=== PATIENT | male | born 1985 | race Caucasian/White ===

== ENCOUNTER 2018-04-11 13:18 | Emergency (ER) | payer BC ==
[2018-04-11 13:36] VITALS: BP 147/110
--- NOTE | 2018-04-11 13:37 | UC ---
Dental HPI - HPI Summary HPI Summary: 32 year old male here with a chief complaint of right lower dental pain and swelling. Patient's had a problem with this area for several years. In the past she's had antibiotics which helped. This most recent episode started several days ago. Been taking ibuprofen which helps some with the pain but the pain returns. No fevers or chills. - History of Current Complaint Stated Complaint: TOOTH ACHE Time Seen by Provider: 04/11/18 13:25 - Allergies/Home Medications Allergies/Adverse Reactions: Allergies Allergy/AdvReac Type Severity Reaction Status Date / Time No Known Allergies Allergy Verified 04/11/18 13:30 PMH/Surg Hx/FS Hx/Imm Hx Previously Healthy: Yes - ON SUBOXONE - Family History Known Family History: Positive: Non-Contributory Review of Systems All Other Systems Reviewed And Are Negative: Yes Constitutional: Positive: Negative Skin: Positive: Negative Eyes: Positive: Negative ENT: Positive: Dental Pain Respiratory: Positive: Negative Cardiovascular: Positive: Negative Gastrointestinal: Positive: Negative Motor: Positive: Negative Neurovascular: Positive: Negative Musculoskeletal: Positive: Negative Neurological: Positive: Negative Psychological: Positive: Negative Is Patient Immunocompromised?: No Physical Exam Triage Information Reviewed: Yes Appearance: Well-Appearing, No Pain Distress, Well-Nourished Vital Signs Reviewed: Yes Eye Exam: Normal Eyes: Positive: Conjunctiva Clear ENT: Positive: Pharynx normal, Uvula midline. Negative: Muffled voice Dental: Positive: Other: - Right lower molars have extensive decay. There is gingival swelling and some swelling to the cheek. Neck exam: Normal Neck: Positive: Supple Respiratory: Positive: Lungs clear, Normal breath sounds, No respiratory distress Cardiovascular: Positive: RRR Musculoskeletal Exam: Normal Musculoskeletal: Positive: Strength Intact, ROM Intact Neurological Exam: Normal Neurological: Positive: Alert, Muscle Tone Normal Psychological Exam: Normal Psychological: Positive: Normal Response To Family, Age Appropriate Behavior Skin Exam: Normal Dental Complaint Course/Dx - Differential Dx/Diagnosis Provider Diagnoses: DENTAL INFECTION Discharge - Sign-Out/Discharge Documenting (check all that apply): Patient Departure All imaging exams completed and their final reports reviewed: No Studies - Discharge Plan Condition: Stable Disposition: HOME Prescriptions: Penicillin VK 500 MG TAB(NF) [Penicillin VK 500 mg Tab] 500 mg PO QID #40 tab Patient Education Materials: Dental Abscess (ED) Referrals: Mina Becker MD [Primary Care Provider] - Additional Instructions: FOLLOW UP WITH YOUR DENTIST. GET RECHECKED FOR ANY WORSENING OF YOUR CONDITION OR QUESTIONS OR CONCERNS. - Billing Disposition and Condition Condition: STABLE Disposition: Home
== END 2018-04-11 13:40 | disposition home or self-care (01) ==
LOC: UCEAST 13:18
DX: K04.6 Periapical abscess with sinus (principal)
CPT/HCPCS: 99212; G0463

== ENCOUNTER 2019-05-20 11:09 | Emergency (ER) | payer BC ==
--- NOTE | 2019-05-20 11:31 | ED ---
Complex/Multi-Sys Presentation - HPI Summary HPI Summary: 33-year-old male with significant past medical history of heroin abuse (clean for 5 years), alcoholism, hepatitis C and anxiety presents to emergency department today with a chief complaint of feeling anxious. Patient states he has been shaking and feeling anxious for 2 days. he originally believed the symptoms to be due to alcohol withdrawal which he states he has never been in. he endorses 5 years of drinking 4 21oz "twisted tea" today. he states his last drink was this morning. Patient denies recent drug use. Patient is interested in alcohol cessation. Patient denies fever, chest pain, abdominal pain, shortness of breath all, rash. Family history and surgical history noncontributory. - History Of Current Complaint Chief Complaint: EDPsychosocial Time Seen by Provider: 05/20/19 11:15 Hx Obtained From: Patient Onset/Duration: Gradual Onset Timing: Constant Severity Currently: Mild Severity Initially: Mild - Allergies/Home Medications Allergies/Adverse Reactions: Allergies Allergy/AdvReac Type Severity Reaction Status Date / Time No Known Allergies Allergy Verified 05/20/19 11:18 PMH/Surg Hx/FS Hx/Imm Hx Infectious Disease History: No Infectious Disease History: Reports: Hx Hepatitis - hep C Denies: Traveled Outside the [place] in Last 30 Days - Family History Known Family History: Positive: Non-Contributory - Social History Alcohol Use: Daily Alcohol Amount: 3-4 beers a night Substance Use Type: Reports: None Substance Use Comment - Amount & Last Used: recoving heroine 3 yrs Smoking Status (MU): Light Every Day Tobacco Smoker Amount Used/How Often: 1/2 PPD Review of Systems Constitutional: Negative Eyes: Negative ENT: Negative Cardiovascular: Negative Respiratory: Negative Gastrointestinal: Negative Genitourinary: Negative Musculoskeletal: Negative Skin: Negative Neurological: Other - tremor Positive: Anxious All Other Systems Reviewed And Are Negative: Yes Physical Exam - Summary Physical Exam Summary: Patient appeared have a mild tremor in conversation of the upper extremities and lower extremities bilaterally. Tremor is constant. Triage Information Reviewed: Yes Vital Signs On Initial Exam: Initial Vitals Temp Pulse Resp BP Pulse Ox 98.6 F 100 20 141/118 99 05/20/19 11:15 05/20/19 11:15 05/20/19 11:15 05/20/19 11:15 05/20/19 11:15 Vital Signs Reviewed: Yes Appearance: Positive: Well-Appearing, No Pain Distress, Well-Nourished Skin: Positive: Warm, Skin Color Reflects Adequate Perfusion Procedures - Sedation Patient Received Moderate/Deep Sedation with Procedure: No Diagnostics - Vital Signs Vital Signs Temp Pulse Resp BP Pulse Ox 05/20/19 11:15 98.6 F 100 20 141/118 99 - Laboratory Result Diagrams: 05/20/19 11:49 05/20/19 11:43 Lab Statement: Any lab studies that have been ordered have been reviewed, and results considered in the medical decision making process. Complex Multi-Symp Course/Dx Course Of Treatment: Patient was seen and examined vitals are stable and he is afebrile. Blood work returned showing no leukocytosis.AST 123, ALT 58. This is suggestive of alcoholic fatty liver disease. Blood glucose 113. Serum alcohol level is 120. Urinalysis negative for UTI with negative toxicology screening. Patient was showing signs of early mild alcohol withdrawal and was treated with 50 mg of Librium. After medication patients symptoms significantly reduced and he was given a prescription for a Librium taper to follow up as an outpatient for detox. - Diagnoses Differential Diagnoses/HQI/PQRI: Metabolic Abnormality, Other - Alcohol withdrawal, anxiety Provider Diagnoses: Alcohol withdrawal Discharge ED - Sign-Out/Discharge Documenting (check all that apply): Patient Departure - Discharge Plan Condition: Stable Disposition: HOME Prescriptions: chlordiazePOXIDE CAP* [Librium CAP*] 25 mg PO SEE INSTRUCTIONS #14 cap MDD 8 tab chlordiazePOXIDE CAP* [Librium CAP*] 25 mg PO SEE INSTRUCTIONS #14 cap MDD 8 Patient Education Materials: Alcohol Withdrawal (ED), Anxiety (ED) Referrals: Mina Becker MD [Primary Care Provider] - 3 Days Additional Instructions: You were seen in the emergency department today due to alcohol withdrawal. This occurs when your blood alcohol levels go below what they normally are and cause tremors, hallucinations, and even seizures when severe. Alcohol withdrawal can be life-threatening, if these symptoms continue please return to emergency department immediately. Please follow-up with your primary care physician in 3 days for further evaluation and management of your symptoms. If you develop any new or worsening symptoms please return to the emergency department immediately. chlordiazepoxide Day 1 - 50 mg every 6 to 12 hours (Your first dose was given to you in the emergency room (50mg) Day 2 - 25 mg every 6 hours Day 3 - 25 mg twice a day Day 4 - 25 mg at night - Billing Disposition and Condition Condition: STABLE Disposition: Home
[2019-05-20 12:00] LABS: ABS Lymphocytes 0.9 10^3/ul (1.0-4.8); ABS Monocytes 0.4 10^3/ul (0-0.8); ABS Neutrophils 2.6 10^3/ul (1.5-7.7); Eosinophil % 0.4 %; Hematocrit 42 % (42-52); Hemoglobin 14.6 g/dL (14.0-18.0); Lymphocyte % 22.6 %; Mean Corpuscular HGB Conc 35 g/dL (31-36); Mean Corpuscular Hemoglobin 33 pg (27-31); Mean Corpuscular Volume 93 fL (80-94); Mean Platelet Volume 6.9 fL (7.4-10.4); Nucleated Red Blood Cells % 0.3; Platelet Count 169 10^3/uL (150-450); Red Blood Count 4.48 10^6 /uL (4.18-5.48); Red Cell Distribution Width 13 % (10-15); White Blood Count 3.9 10^3/uL (3.5-10.8)
[2019-05-20 12:15] LABS: Albumin 4.1 g/dL (3.2-5.2); Albumin/Globulin Ratio 1.3 (1-3); Calcium 8.9 mg/dL (8.6-10.3); EGFR African American 129.4 (>60); EGFR Non-African American 106.9 (>60); Globulin 3.1 g/dL (2-4); Potassium 3.8 mmol/L (3.5-5.0); Total Bilirubin 0.5 mg/dL (0.2-1.0); Total Protein 7.2 g/dL (6.4-8.9)
[2019-05-20 12:47] LABS: TSH (Thyroid Stimulating Horm) 2.59 mcIU/mL (0.34-5.60)
[2019-05-20 13:29] LABS: Urine Appearance Clear; Urine Bilirubin Negative (Negative); Urine Blood Negative (Negative); Urine Color Yellow; Urine Glucose Negative (Negative); Urine Ketones Trace (Negative); Urine Nitrite Negative (Negative); Urine Protein 2+(100 mg/dL) (Negative); Urine Specific Gravity 1.017 (1.010-1.030); Urine Urobilinogen Negative (Negative)
[2019-05-20 13:33] LABS: Urine Bacteria Absent (Absent); Urine Red Blood Cell Trace(0-2/hpf) (Absent); Urine White Blood Cell Absent (Absent)
[2019-05-20 13:41] LABS: Urine Benzodiazepine Screen None Detected (None Detect); Urine Opiates Screen None Detected (None Detect)
[2019-05-20] MEDS: Ondansetron ODT TAB* 4 MG SL PRN (14:36)
[2019-05-20] MEDS: chlordiazePOXIDE CAP* 25 MG PO ONE ×2 (14:46)
[2019-05-20 15:40] VITALS: BP 136/96
== END 2019-05-20 15:40 | disposition home or self-care (01) ==
LOC: ED 11:09
DX: F10.239 Alcohol dependence with withdrawal, unspecified (principal); Z86.19 Personal history of other infectious and parasitic diseases; F17.200 Nicotine dependence, unspecified, uncomplicated
CPT/HCPCS: 36415; 80053; 80307; 80320; 81003; 81015; 84443; 85025; 99282; A9270-GY; G0480